=== PATIENT | female | born 1955 | race Caucasian/White ===

== ENCOUNTER 2017-02-27 08:01 | Outpatient (RCR) | payer MEDICAID ==
--- OUTSIDE RECORDS SUMMARY | 2017-01-09 08:51 | XMS REPORT | Continuity of Care Document ---
Author Author [facility] Address Unknown Phone Unavailable Allergies Active Description Code Type Severity Reaction Onset Reported/Identified Relationship to Patient Clinical Status Yes No Known Drug Allergies [id number] Drug Allergy Unknown N/ A 08/06/2015 Medications Problems Date Dx Coded Attending Type Code Diagnosis Diagnosed By 01/20/2011 305.1 TOBACCO ABUSE 01/20/2011 465.9 UPPER RESPIRATORY INFECTION 01/20/2011 466.0 BRONCHITIS, ACUTE 01/20/2011 690.18 OTHER SEBORRHEIC DERMATITIS 01/20/2011 305.1 TOBACCO ABUSE 01/20/2011 465.9 UPPER RESPIRATORY INFECTION 01/20/2011 466.0 BRONCHITIS, ACUTE 01/20/2011 690.18 OTHER SEBORRHEIC DERMATITIS 01/20/2011 ALBA PEREZ DOA K 305.1 TOBACCO ABUSE 01/20/2011 ALBA PEREZ DOA K 465.9 UPPER RESPIRATORY INFECTION 01/20/2011 ALBA PEREZ DOA K 466.0 BRONCHITIS, ACUTE 01/20/2011 ANA HUTCHISON MARU K 690.18 OTHER SEBORRHEIC DERMATITIS 01/20/2011 RIC LARIOS APRN 305.1 TOBACCO ABUSE 01/20/2011 RIC LARIOS APRN 465.9 UPPER RESPIRATORY INFECTION 01/20/2011 RIC LARIOS APRN 466.0 BRONCHITIS, ACUTE 01/20/2011 RIC LARIOS APRN 690.18 OTHER SEBORRHEIC DERMATITIS 01/20/2011 RIC LARIOS APRN 305.1 TOBACCO ABUSE 01/20/2011 RIC LARIOS APRN 465.9 UPPER RESPIRATORY INFECTION 01/20/2011 RIC LARIOS APRN 466.0 BRONCHITIS, ACUTE 01/20/2011 RIC LARIOS APRN 690.18 OTHER SEBORRHEIC DERMATITIS 01/20/2011 RIC LARIOS APRN 305.1 TOBACCO ABUSE 01/20/2011 RIC LARIOS APRN 465.9 UPPER RESPIRATORY INFECTION 01/20/2011 RIC LARIOS APRN 466.0 BRONCHITIS, ACUTE 01/20/2011 RIC HISTOLOGIST, RIC T 690.18 OTHER SEBORRHEIC DERMATITIS 01/20/2011 RIC PACENRIC T 305.1 TOBACCO ABUSE 01/20/2011 RIC LARIOS APRN T 465.9 UPPER RESPIRATORY INFECTION 01/20/2011 RIC LARIOS APRN T 466.0 BRONCHITIS, ACUTE 01/20/2011 RIC LARIOS APRN T 690.18 OTHER SEBORRHEIC DERMATITIS 01/20/2011 PEREZ DO, MARU K 305.1 TOBACCO ABUSE 01/20/2011 PEREZ DO, MARU K 465.9 UPPER RESPIRATORY INFECTION 01/20/2011 PEREZ DO, MARU K 466.0 BRONCHITIS, ACUTE 01/20/2011 PEREZ DO, MARU K 690.18 OTHER SEBORRHEIC DERMATITIS 01/20/2011 PEREZ DO, MARU K 305.1 TOBACCO ABUSE 01/20/2011 PEREZ DO, MARU K 465.9 UPPER RESPIRATORY INFECTION 01/20/2011 PEREZ DO, MARU K 466.0 BRONCHITIS, ACUTE 01/20/2011 PEREZ DO, MARU K 690.18 OTHER SEBORRHEIC DERMATITIS 01/20/2011 PEREZ DO, MARU K 305.1 TOBACCO ABUSE 01/20/2011 PEREZ DO, MARU K 465.9 UPPER RESPIRATORY INFECTION 01/20/2011 PEREZ DO, MARU K 466.0 BRONCHITIS, ACUTE 01/20/2011 PEREZ DO, MARU K 690.18 OTHER SEBORRHEIC DERMATITIS 01/20/2011 AMBER SARABIAC, CELESTINE M 305.1 TOBACCO ABUSE 01/20/2011 AMBER IBARRA-C, CELESTINE M 465.9 UPPER RESPIRATORY INFECTION 01/20/2011 AMBER ARTEAGA, CELESTINE M 466.0 BRONCHITIS, ACUTE 01/20/2011 AMBER SARABIAC, CELESTINE M 690.18 OTHER SEBORRHEIC DERMATITIS 01/20/2011 PEREZ DO, MARU K 305.1 TOBACCO ABUSE 01/20/2011 PEREZ DO, MARU K 465.9 UPPER RESPIRATORY INFECTION 01/20/2011 PEREZ DO, MARU K 466.0 BRONCHITIS, ACUTE 01/20/2011 PEREZ DO, MARU K 690.18 OTHER SEBORRHEIC DERMATITIS 04/25/2013 692.2 CONTACT DERMATITIS AND OTHER ECZEMA DUE TO SOLVENTS 04/25/2013 692.2 CONTACT DERMATITIS AND OTHER ECZEMA DUE TO SOLVENTS 04/25/2013 PEREZ DO, MARU K 692.2 CONTACT DERMATITIS AND OTHER ECZEMA DUE TO SOLVENTS 04/25/2013 RIC LARIOS APRN 692.2 CONTACT DERMATITIS AND OTHER ECZEMA DUE TO SOLVENTS 04/25/2013 RIC LARIOS APRN 692.2 CONTACT DERMATITIS AND OTHER ECZEMA DUE TO SOLVENTS 04/25/2013 RIC LARIOS APRN 692.2 CONTACT DERMATITIS AND OTHER ECZEMA DUE TO SOLVENTS 04/25/2013 RIC LARIOS APRN 692.2 CONTACT DERMATITIS AND OTHER ECZEMA DUE TO SOLVENTS 04/25/2013 PEREZ DO MARU K 692.2 CONTACT DERMATITIS AND OTHER ECZEMA DUE TO SOLVENTS 04/25/2013 PEREZ DO, MARU K 692.2 CONTACT DERMATITIS AND OTHER ECZEMA DUE TO SOLVENTS 04/25/2013 PEREZ DO, MARU K 692.2 CONTACT DERMATITIS AND OTHER ECZEMA DUE TO SOLVENTS 04/25/2013 CELESTINE CLARK PA-C 692.2 CONTACT DERMATITIS AND OTHER ECZEMA DUE TO SOLVENTS 04/25/2013 PEREZ DO, MARU K 692.2 CONTACT DERMATITIS AND OTHER ECZEMA DUE TO SOLVENTS 04/28/2013 709.9 UNSPECIFIED DISORDER OF SKIN AND SUBCUTANEOUS TISSUE 04/28/2013 V70.0 ROUTINE GENERAL MEDICAL EXAMINATION AT A HEALTH CARE FACILITY 04/28/2013 ALBA PEREZ DOA K 709.9 UNSPECIFIED DISORDER OF SKIN AND SUBCUTANEOUS TISSUE 04/28/2013 ANA HUTCHISON MARU K V70.0 ROUTINE GENERAL MEDICAL EXAMINATION AT A HEALTH CARE FACILITY 04/28/2013 RIC LARIOS APRN 709.9 UNSPECIFIED DISORDER OF SKIN AND SUBCUTANEOUS TISSUE 04/28/2013 RIC LARIOS APRN V70.0 ROUTINE GENERAL MEDICAL EXAMINATION AT A HEALTH CARE FACILITY 04/28/2013 RIC LARIOS APRN 709.9 UNSPECIFIED DISORDER OF SKIN AND SUBCUTANEOUS TISSUE 04/28/2013 RIC LARIOS APRN V70.0 ROUTINE GENERAL MEDICAL EXAMINATION AT A HEALTH CARE FACILITY 04/28/2013 RIC LARIOS APRN 709.9 UNSPECIFIED DISORDER OF SKIN AND SUBCUTANEOUS TISSUE 04/28/2013 RIC LARIOS APRN V70.0 ROUTINE GENERAL MEDICAL EXAMINATION AT A HEALTH CARE FACILITY 04/28/2013 RIC LARIOS APRN 709.9 UNSPECIFIED DISORDER OF SKIN AND SUBCUTANEOUS TISSUE 04/28/2013 RIC LARIOS APRN V70.0 ROUTINE GENERAL MEDICAL EXAMINATION AT A HEALTH CARE FACILITY 04/28/2013 MARU PEREZ DO 709.9 UNSPECIFIED DISORDER OF SKIN AND SUBCUTANEOUS TISSUE 04/28/2013 PEREZ DO MARU K V70.0 ROUTINE GENERAL MEDICAL EXAMINATION AT A HEALTH CARE FACILITY 04/28/2013 PEREZ DO MARU K 709.9 UNSPECIFIED DISORDER OF SKIN AND SUBCUTANEOUS TISSUE 04/28/2013 PEREZ DO MARU K V70.0 ROUTINE GENERAL MEDICAL EXAMINATION AT A HEALTH CARE FACILITY 04/28/2013 PEREZ DO MARU K 709.9 UNSPECIFIED DISORDER OF SKIN AND SUBCUTANEOUS TISSUE 04/28/2013 PEREZ DO MARU K V70.0 ROUTINE GENERAL MEDICAL EXAMINATION AT A HEALTH CARE FACILITY 04/28/2013 CELESTINE CLARK PA-C 709.9 UNSPECIFIED DISORDER OF SKIN AND SUBCUTANEOUS TISSUE 04/28/2013 CELESTINE CLARK PA-C V70.0 ROUTINE GENERAL MEDICAL EXAMINATION AT A HEALTH CARE FACILITY 04/28/2013 PEREZ DOALBAA K 709.9 UNSPECIFIED DISORDER OF SKIN AND SUBCUTANEOUS TISSUE 04/28/2013 PEREZ DO MARU K V70.0 ROUTINE GENERAL MEDICAL EXAMINATION AT A HEALTH CARE FACILITY 06/09/2014 ALBA PEREZ DOA K 723.1 CERVICALGIA 06/09/2014 ANA HUTCHISON MARU K 782.0 DISTURBANCE OF SKIN SENSATION 06/09/2014 PEREZ DO MARU K 848.8 OTHER SPECIFIED SITES OF SPRAINS AND STRAINS 06/09/2014 PEREZ DO MARU K 723.1 CERVICALGIA 06/09/2014 PEREZ DO MARU K 782.0 DISTURBANCE OF SKIN SENSATION 06/09/2014 PEREZ DO MARU K 848.8 OTHER SPECIFIED SITES OF SPRAINS AND STRAINS 06/09/2014 PEREZ DO MARU K 723.1 CERVICALGIA 06/09/2014 PEREZ DO MARU K 782.0 DISTURBANCE OF SKIN SENSATION 06/09/2014 PEREZ DO MARU K 848.8 OTHER SPECIFIED SITES OF SPRAINS AND STRAINS 06/09/2014 CELESTINE CLARK PA-C 723.1 CERVICALGIA 06/09/2014 CELESTINE CLARK PA-C 782.0 DISTURBANCE OF SKIN SENSATION 06/09/2014 CELESTINE CLARK PA-C 848.8 OTHER SPECIFIED SITES OF SPRAINS AND STRAINS 06/09/2014 PEREZ DO MARU K 723.1 CERVICALGIA 06/09/2014 ANA HUTCHISON MARU K 782.0 DISTURBANCE OF SKIN SENSATION 06/09/2014 ANA HUTCHISON MARU K 848.8 OTHER SPECIFIED SITES OF SPRAINS AND STRAINS 09/30/2014 CLARK PA, CELESTINE M Ot 723.1 09/30/2014 CLARK PA, CELESTINE M Ot 782.0 09/30/2014 CLARK PA, CELESTINE M Ot V45.4 10/02/2014 CLARK PA, CELESTINE M Ot 723.1 10/02/2014 CLARK PA, CELESTINE M Ot 782.0 10/02/2014 CLARK PA, CELESTINE M Ot V45.4 10/13/2014 CLARK PA, CELESTINE M Ot 723.1 10/13/2014 CLARK PA, CELESTINE M Ot 782.0 10/13/2014 CLARK PA, CELESTINE M Ot V45.4 11/17/2014 ANA HUTCHISON, MARU K 780.2 SYNCOPE 11/17/2014 ANA HUTCHISON MARU K V05.8 ZOSTAVAX DX 11/17/2014 CELESTINE CLARK PA-C M 780.2 SYNCOPE 11/17/2014 CELESTINE CLARK PA-C M V05.8 ZOSTAVAX DX 11/17/2014 MARU PEREZ DO K 780.2 SYNCOPE 11/17/2014 PEREZ , MARU K V05.8 ZOSTAVAX DX 11/20/2014 MANDIE SYED MD Ot 723.1 11/20/2014 MANDIE SYED MD Ot 724.1 11/20/2014 MANDIE SYED MD Ot V57.1 11/20/2014 MANDIE SYED MD Ot 723.1 11/20/2014 MANDIE SYED MD Ot 724.1 11/20/2014 MANDIE SYED MD Ot V57.1 11/27/2014 CELESTINE QUIROS M Ot 723.1 11/27/2014 AMBER PA, CELESTINE M Ot 782.0 11/27/2014 AMBER PASPENCERUA M Ot V45.4 11/27/2014 MANDIE SYED MD Ot 723.1 11/27/2014 MANDIE SYED MD Ot 724.1 11/27/2014 MANDIE SYED MD Ot V57.1 12/10/2014 MANDIE SYED MD Ot 723.1 CERVICALGIA 12/10/2014 MANDIE SYED MD Ot 724.1 PAIN IN THORACIC SPINE 12/10/2014 MANDIE SYED MD Ot V57.1 PHYSICAL THERAPY NEC 12/18/2014 MARU PEREZ DO 272.4 OTHER AND UNSPECIFIED HYPERLIPIDEMIA 12/18/2014 MARU PEREZ DO 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 12/18/2014 MARU PEREZ DO 296.90 UNSPECIFIED EPISODIC MOOD DISORDER 12/18/2014 MARU PEREZ DO 338.29 OTHER CHRONIC PAIN 02/26/2015 AMBER IBARRA, CELESTINE M Ot 723.1 02/26/2015 AMBER PA, CELESTINE M Ot 782.0 02/26/2015 CELESTINE QUIROS M Ot V45.4 02/26/2015 ROHAN ALANIZ MD Ot 288.60 02/26/2015 ROHAN ALANIZ MD Ot 722.4 02/26/2015 ROHAN ALANIZ MD Ot V76.12 02/26/2015 ROHAN ALANIZ MD Ot V76.12 02/26/2015 ROHAN ALANIZ MD Ot 288.60 02/26/2015 CORBIN HUFF ROHAN Chani Ot 722.4 02/26/2015 SPENCER QUIROSUA M Ot 723.1 02/26/2015 CELESTINE QUIROS M Ot 782.0 02/26/2015 CELESTINE QUIROS M Ot V45.4 02/26/2015 CORBIN HUFF, ROHAN Wilde Ot 288.60 02/26/2015 CORBIN HUFF, ROHAN Wilde Ot 722.4 02/26/2015 ROHAN ALANIZ MD Ot V76.12 03/19/2015 ROHAN ALANIZ MD Ot V76.12 04/26/2015 ROHAN ALANIZ MD Ot 288.60 LEUKOCYTOSIS, UNSPECIFIED 04/26/2015 ROHAN ALANIZ MD Ot 722.4 CERVICAL DISC DEGEN 07/20/2015 SPENCER QUIROSUA M Ot 723.1 07/20/2015 AMBER PARENEECELESTINE M Ot 782.0 07/20/2015 RENEE QUIROSSHUA M Ot V45.4 07/20/2015 ROHAN ALANIZ MD Ot V76.12 07/20/2015 ROHAN ALANIZ MD Ot 288.60 07/20/2015 ROHAN ALANIZ MD Ot 722.4 08/02/2015 CLARK PA, CELESTINE M Ot 723.1 08/02/2015 CLARK PA, CELESTINE M Ot 782.0 08/02/2015 CLARK PA, CELESTINE M Ot V45.4 08/02/2015 ROHAN ALANIZ MD Ot V76.12 08/02/2015 CORBIN HUFF, ROHAN Wiled Ot 288.60 08/02/2015 CORBIN HUFF, ROHAN Wilde Ot 722.4 08/02/2015 SHERLYN PEARCE MD (DDU) Ot V68.01 08/02/2015 SHERLYN PEARCE MD (DDU) Ot V82.89 08/06/2015 ROHAN ALANIZ MD Ot 288.60 08/06/2015 ROHAN ALANIZ MD Ot 722.4 08/06/2015 MANDIE SYED MD Ot M50.30 OTHER CERVICAL DISC DEGENERATION, UNSP C 08/06/2015 AMBER PA, CELESTINE M Ot 723.1 08/06/2015 AMBER PA, CELESTINE M Ot 782.0 08/06/2015 AMBER PA, CELESTINE M Ot V45.4 08/06/2015 ROHAN ALANIZ MD Ot V76.12 08/06/2015 ROHAN ALANIZ MD Ot 288.60 08/06/2015 CORBIN HUFF, ROHAN Wilde Ot 722.4 08/06/2015 SHERLYN PEARCE MD (DDU) Ot V68.01 08/06/2015 SHELRYN PEARCE MD (DDU) Ot V82.89 09/07/2015 MANDIE SYED MD Ot M54.6 10/26/2015 MANDIE SYED MD Ot M54.6 10/27/2015 MANDIE SYED MD Ot M54.6 12/14/2015 CLARK PA, CELESTINE M Ot 723.1 12/14/2015 CLARK PA, CELESTINE M Ot 782.0 12/14/2015 CLARK PA, CELESTINE M Ot V45.4 12/14/2015 ROHAN ALANIZ MD Ot V76.12 12/14/2015 ROHAN ALANIZ MD Ot 288.60 12/14/2015 ROHAN ALANIZ MD Ot 722.4 12/14/2015 SHERLYN PEARCE MD (DDU) Ot V68.01 12/14/2015 SHERLYN PEARCE MD (DDU) Ot V82.89 12/14/2015 MANDIE SYED MD Ot M54.6 12/14/2015 MANDIE SYED MD Ot M54.6 05/04/2016 CELESTINE QUIROS Ot 723.1 CERVICALGIA 05/04/2016 CELESTINE QUIROS Ot 782.0 SKIN SENSATION DISTURB 05/04/2016 CELESTINE QUIROS Ot V45.4 ARTHRODESIS STATUS 05/04/2016 ROHAN ALANIZ MD Ot V76.12 OTH SCREEN MAMMO-MALIGN NEOPLASM OF NATHALIE 05/04/2016 ROHAN ALANIZ MD Ot 288.60 LEUKOCYTOSIS, UNSPECIFIED 05/04/2016 ROHAN ALANIZ MD Ot 722.4 CERVICAL DISC DEGEN 05/04/2016 SHERLYN PEARCE MD (DDU) Ot V68.01 DISABILITY EXAMINATION 05/04/2016 SHERLYN PEARCE MD (DDU) Ot V82.89 SCREEN FOR OTH SPECIF CONDITIONS 05/04/2016 MANDIE SYED MD Ot M54.6 PAIN IN THORACIC SPINE 05/05/2016 COLTHARP DO, ALLAN A Ot M47.892 OTHER SPONDYLOSIS, CERVICAL REGION 05/10/2016 COLTHARP DO, ALLAN A Ot M47.892 OTHER SPONDYLOSIS, CERVICAL REGION 05/16/2016 COLTHARP DO, ALLAN A Ot M47.892 OTHER SPONDYLOSIS, CERVICAL REGION 05/19/2016 CELESTINE QUIROS Ot 723.1 CERVICALGIA 05/19/2016 CELESTINE QUIROS Ot 782.0 SKIN SENSATION DISTURB 05/19/2016 CELESTINE QUIROS Ot V45.4 ARTHRODESIS STATUS 05/19/2016 ROHAN ALANIZ MD Ot V76.12 OTH SCREEN MAMMO-MALIGN NEOPLASM OF NATHALIE 05/19/2016 ROHAN ALANIZ MD Ot 288.60 LEUKOCYTOSIS, UNSPECIFIED 05/19/2016 ROHAN ALANIZ MD Ot 722.4 CERVICAL DISC DEGEN 05/19/2016 SHERLYN PEARCE MD (DDU) Ot V68.01 DISABILITY EXAMINATION 05/19/2016 SHERLYN PEARCE MD (DDU) Ot V82.89 SCREEN FOR OTH SPECIF CONDITIONS 05/19/2016 MANDIE SYED MD Ot M54.6 PAIN IN THORACIC SPINE 05/19/2016 COLTHARP DO, ALLAN A Ot M47.892 OTHER SPONDYLOSIS, CERVICAL REGION 05/19/2016 MANDIE SYED MD Ot M47.812 SPONDYLOSIS W/O MYELOPATHY OR RADICULOPA 05/19/2016 MANDIE SYED MD Ot M50.13 CERVICAL DISC DISORDER W RADICULOPATHY, 05/19/2016 MANDIE SYED MD Ot 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, T 05/19/2016 MANDIE SYED MD, Ot M96.1 POSTLAMINECTOMY SYNDROME, NOT ELSEWHERE 06/06/2016 MANDIE SYED MD, Ot M47.812 SPONDYLOSIS W/O MYELOPATHY OR RADICULOPA 06/06/2016 MANDIE SYED MD, Ot M50.13 CERVICAL DISC DISORDER W RADICULOPATHY, 06/06/2016 MANDIE SYED MD, Ot 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 Visit Date/Time Discharge Status Pt. Type Provider Facility Loc./Unit Complaint [id number] 12/18/2014 13:43:00 12/18/2014 23: 59:59 CLS Outpatient MARU PEREZ DO [id number] 12/08/2014 15:00:00 12/08/2014 23: 59:59 CLS Outpatient CELESTINE CLARK PA-C [id number] 11/18/2014 00:00:00 11/18/2014 23: 59:59 CLS Outpatient MARU PEREZ DO [id number] 07/07/2014 09:19:00 07/07/2014 23: 59:59 CLS Outpatient MARU PEREZ DO [id number] 06/09/2014 09:12:00 06/09/2014 23: 59:59 CLS Outpatient MARU PEREZ DO [id number] 04/07/2014 16:28:00 04/07/2014 23: 59:59 CLS Outpatient RIC LARIOS APRN [id number] 03/17/2014 15:47:00 03/17/2014 23: 59:59 CLS Outpatient RIC LARIOS APRN [id number] 02/24/2014 13:46:00 02/24/2014 23: 59:59 CLS Outpatient RIC LARIOS APRN [id number] 01/30/2014 16:05:00 01/30/2014 23: 59:59 CLS Outpatient RIC LARIOS APRN [id number] 12/18/2013 10:04:00 12/18/2013 23: 59:59 CLS Outpatient MARU PEREZ DO [id number] 04/28/2013 13:16:00 Document Registration [id number] 04/25/2013 10:36:00 Document Registration
== END 2017-02-27 12:25 | disposition home or self-care (01) ==
PROVIDERS: ATTEND Neurological Surgery
DX: M54.2 Cervicalgia (principal); Z98.1 Arthrodesis status

== ENCOUNTER → 2017-05-03 | Outpatient (CLI) | payer MEDICARE ==
[2017-05-03 10:59] LABS: CHOLESTEROL 189 MG/DL (< 200); DIRECT LDL 89 MG/DL (1-129); TRIGLYCERIDES 311 MG/DL (<150); VLDL CHOLESTEROL 62 MG/DL (5-40)
== END ==
LOC: LAB 10:26
PROVIDERS: ATTEND Family Medicine
DX: E78.00 Pure hypercholesterolemia, unspecified (principal)
CPT/HCPCS: 36415; 80061

== ENCOUNTER → 2017-09-27 | Outpatient (CLI) | payer MEDICARE, MEDICAID ==
[~2017-09-27] VITALS: Ht 157.5 cm; Wt 68.0 kg
[~2017-09-27] MED LIST: DEXAMETHASONE 10 MG/ML (DECADRON) 1 ML VIAL ONE
[2017-09-27 13:19] VITALS: BP 140/77
--- NOTE | 2017-10-01 00:50 | OPERATIVE REPORT ---
DATE OF SERVICE: 09/27/2017 DIAGNOSES: Thoracic radiculopathy. PROCEDURE: Fluoroscopic guidance of thoracic intralaminar epidural steroid injection, T7-T8. PROCEDURE IN DETAIL: After obtaining informed consent from the patient, the patient's chart was reviewed. The patient was then brought to the procedure room and placed in prone position, timeout was performed. The upper back was prepped with antiseptic solution and under fluoro guidance, patient's T7-T8 region was identified. The T7-T8 vertebral body was identified with fluoro guidance and approximately 2 mL of 1.5% lidocaine solution was used to anesthetize the skin down to the pedicle and under fluoro guidance using a 22-guage 3-1/2 inch spinal needle, this tract was anesthetized all way from the pedicle down to the intralaminar space in between T7 and T8. After this tract was anesthetized, then a 20-guage Tuohy was used and involved the same tract. Using a loss of resistance syringe, the Tuohy was then directed into the epidural space under fluoro guidance. Upon obtaining loss of resistance, the syringe was exchanged for a syringe containing radiopaque dye and secondary identification of the epidural space was then obtained. At this point, the syringe was then exchanged for a syringe containing 10 mL of dexamethasone and this was injected into the epidural space, washout was identified under fluoroscopy. Needle was then flushed with the normal saline from the loss of resistance, approximately 0.5 mL and then needle removed. Bandages were applied to all procedure sites. The patient tolerated procedure well and was taken to the recovery room in stable condition. COMPLICATIONS: None. Job ID: [id number] DocumentID: [id number] Dictated Date: 09/30/2017 20:29:38 [place] Counselor Date: 10/01/2017 00:50:30 Dictated By: BREANN GOODRICH DO
== END ==
LOC: CARD 12:30
PROVIDERS: ATTEND Pain Medicine Interventional Pain Medicine
DX: M54.14 Radiculopathy, thoracic region (principal)
CPT/HCPCS: 62321

== ENCOUNTER → 2018-04-29 | Outpatient (CLI) | payer MEDICARE, MEDICAID ==
[2018-04-29 15:27] LABS: ALANINE AMINOTRANSFERASE 20 U/L (0-55); ALBUMIN 4.1 GM/DL (3.2-4.5); ALKALINE PHOSPHATASE 94 U/L (40-136); BILIRUBIN,TOTAL 0.4 MG/DL (0.1-1.0); BUN/CREATININE RATIO 21; CARBON DIOXIDE 16 MMOL/L (21-32); CHLORIDE 111 MMOL/L (98-107); CHOLESTEROL 171 MG/DL (< 200); CREATININE SERUM 0.87 MG/DL (0.60-1.30); GFR ESTIMATED > 60; GLUCOSE 119 MG/DL (70-105); HDL CHOLESTEROL 41 MG/DL (40-60); POTASSIUM 4.5 MMOL/L (3.6-5.0); SODIUM 139 MMOL/L (135-145); TRIGLYCERIDES 183 MG/DL (<150); VLDL CHOLESTEROL 37 MG/DL (5-40)
[2018-04-29 17:17] LABS: BASOPHILS # (AUTO) 0.1 10^3/uL (0.0-0.1); BASOPHILS % (AUTO) 1 % (0-10); EOSINOPHILS # (AUTO) 0.1 10^3/uL (0.0-0.3); EOSINOPHILS % (AUTO) 1 % (0-10); HEMATOCRIT 42 % (35-52); HEMOGLOBIN 14.9 G/DL (11.5-16.0); LYMPHOCYTES # (AUTO) 3.6 X 10^3 (1.0-4.0); LYMPHOCYTES % (AUTO) 29 % (12-44); MEAN CORPUSCULAR HEMOGLOBIN 32 PG (25-34); MEAN CORPUSCULAR HGB CONC 35 G/DL (32-36); MEAN CORPUSCULAR VOLUME 90 FL (80-99); MEAN PLATELET VOLUME 11.7 FL (7.4-10.4); MONOCYTES # (AUTO) 0.7 X 10^3 (0.0-1.0); MONOCYTES % (AUTO) 5 % (0-12); NEUTROPHILS % (AUTO) 65 % (42-75); PLATELET COUNT 233 10^3/uL (130-400); RED BLOOD COUNT 4.68 10^6/uL (4.35-5.85); RED CELL DISTRIBUTION WIDTH 14.6 % (10.0-14.5); WHITE BLOOD COUNT 12.4 10^3/uL (4.3-11.0)
--- NOTE | 2018-04-30 11:03 | Diagnostic Imaging Report ---
INDICATION: Routine screening. COMPARISON: 01/29/2015. TECHNIQUE: 2D and 3D bilateral screening mammography was performed with CAD. FINDINGS: Both breasts are heterogeneously dense, limiting the sensitivity of mammography. The parenchymal pattern is stable. No mass or malignant appearing microcalcifications are seen. The axillae are unremarkable. IMPRESSION: No mammographic features suspicious for malignancy are identified. ACR BI-RADS Category 1: Negative. Result letter will be mailed to the patient. Note: At least 10% of breast cancer is not imaged by mammography. Dictated by: Dictated on workstation # [id number]
== END ==
LOC: RAD 14:20
PROVIDERS: ATTEND Nurse Practitioner Family
DX: Z12.31 Encounter for screening mammogram for malignant neoplasm of breast (principal); E78.2 Mixed hyperlipidemia; R53.83 Other fatigue
CPT/HCPCS: 36415; 77067; 80053; 80061; 84443; 85025

== ENCOUNTER → 2018-07-29 | Outpatient (CLI) | payer MEDICARE, MEDICAID | LOC: LAB 13:26 | DX: E03.8 Other specified hypothyroidism (principal) | CPT/HCPCS: 36415; 84443 ==

== ENCOUNTER 2018-09-18 11:15 | Outpatient (RCR) | payer MEDICARE, MEDICAID | END 2018-09-18 12:54 | disposition home or self-care (01) | PROVIDERS: ATTEND Orthopaedic Surgery | DX: M54.2 Cervicalgia (principal); Z98.1 Arthrodesis status ==